=== PATIENT | male | born 1955 ===

== ENCOUNTER 2017-11-10 08:45 | Day surgery (SDC) | payer OTHER ==
[2017-11-09 14:05] VITALS: BMI 18.6
[2017-11-10 09:28] VITALS: TEMP 98
[2017-11-10] MEDS ORDERED: Propofol 10 mg/ml Inj (20 ML) ONE (09:49)
[2017-11-10] MEDS ORDERED: Lactated Ringer's 1,000 ML IV ONE (10:05)
--- NOTE | 2017-11-10 10:25 | CP.SDSHP ---
Same Day Surgery H & P - History Proposed Procedure: EGD Pre-Op Diagnosis: SEE NOTES - Previous Medical/Surgical History Misc: Other Pain: 4.Moderate Pain - Allergies Allergies: Allergies No Known Allergies Allergy (Verified 01/22/16 09:00) - Physical Exam General Appearance: NOW Vital Signs: Vital Signs 11/10/17 09:00 Temperature 98 F Pulse Rate 67 Respiratory 16 Rate Blood Pressure 112/68 O2 Sat by Pulse 98 Oximetry Short Stay Discharge - Short Stay Discharge Admitting Diagnosis/Reason for Visit: DYSPHAGIA Disposition: HOME/ ROUTINE
[2017-11-10] MEDS ORDERED: Belladonna-Phenobarbital PO STA (10:27)
[2017-11-10 11:19] VITALS: BP 102/67; PULSE 60; RESP 16; O2SAT 99
== END 2017-11-10 11:28 | disposition home or self-care (01) ==
LOC: C.ENDO 08:45
PROVIDERS: ATTEND Specialist
DX: K20.9 Esophagitis, unspecified (principal); K29.60 Other gastritis without bleeding; K31.9 Disease of stomach and duodenum, unspecified
CPT/HCPCS: 43239; 88305; 88342; J2001; J2704; J3010; J7120